=== PATIENT | male | born 1970 | race African-American/Black ===

== ENCOUNTER 2016-11-02 19:31 | Emergency (ER) | payer BC ==
[~2016-11-02] VITALS: Ht 180.3 cm; Wt 100.8 kg
[~2016-11-02 19:31] MED LIST: FLEXERIL10 MG PO; LOSARTAN POTASS25 MG PO; NAPROXEN500 MG PO; PREDNISONE20 MG PO
[2016-11-02 19:50] LABS: POINT-OF-CARE METER ID UU13113778
[2016-11-02 20:30] LABS: ADD MIUA? NO; BILIRUBIN NEGATIVE; BLOOD NEGATIVE; COLOR YELLOW ((YELLOW)); GLUCOSE (STRIP) >=500; KETONES 5; LEUKOCYTES NEGATIVE; NITRITE NEGATIVE; PROTEIN (STRIP) NEGATIVE; SPECIFIC GRAVITY 1.029 (1.000-1.030); UCUL ADDED? NO; UROBILINOGEN 0.2 MG/DL (0.2-1.0)
[2016-11-02 20:37] LABS: HEMATOCRIT 47.7 % (38.0-50.0); MCH 28.4 PG (29.0-34.0); MCV 83.7 FL (86-99); MEAN PLAT.VOLUME 9.8 uM^3 (9.0-12.4); PLATELET COUNT 389 K/uL (156-360); RBC DIS.WIDTH-CV 11.7 % (11.8-14.6); WHITE BLOOD COUNT 5.3 K/uL (4.1-10.2)
[2016-11-02 21:03] LABS: CHLORIDE 101 mEq/L (99-109); POTASSIUM 3.9 mEq/L (3.7-5.4); SODIUM 134 mEq/L (136-147)
[2016-11-02 21:05] LABS: GLUCOSE 334 mg/dL (70-99)
[2016-11-02 21:07] LABS: ANION GAP 9 MEQ/L (2-14)
[2016-11-02 21:08] LABS: EOSINOPHIL (%) 0.9 % (0-5); EOSINOPHIL COUNT 0.1 K/uL (0-0.3); IMMATURE GRANULOCYTE (%) 0.4 % (0.0-0.7); INSTRUMENT ABS NEUTROPHIL CT 2.6 K/uL; LYMPHOCYTE COUNT 2.1 K/uL (1.0-2.8); MONOCYTE (%) 9.9 % (3-12); MONOCYTE COUNT 0.5 K/uL (0-0.8); NEUTROPHIL (%) 48.7 % (45-76); NEUTROPHIL COUNT 2.6 K/uL (1.8-6.4)
[2016-11-02 21:09] LABS: GFR ESTIMATE (CALCULATED) > 59 mL/min/
[2016-11-02 21:10] LABS: UREA NITROGEN (BUN) 10 mg/dL (9-23)
[2016-11-02] MEDS ORDERED: METFORMIN HCL500 MG PO (21:24)
[2016-11-02 22:12] VITALS: BP 150/101
== END 2016-11-02 22:14 | disposition home or self-care (01) ==
LOC: EME 19:31
PROVIDERS: Emergency Medicine
DX: E11.65 Type 2 diabetes mellitus with hyperglycemia (principal); I10 Essential (primary) hypertension; Z72.0 Tobacco use
CPT/HCPCS: 80048; 81003; 82948; 85025; 99281; 99285; J7030